=== PATIENT | male | born 1950 | race Caucasian/White ===

== ENCOUNTER 2016-11-30 11:18 | Inpatient (IN) | payer OTHER ==
[~2016-11-30] VITALS: Ht 177.8 cm; Wt 87.1 kg
--- NOTE | ~2016-11-30 | EKG ---
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
--- NOTE | ~2016-11-30 | S ---
[facility] [place] [address] [place] [address] SURGICAL PATH RPT PROCEDURE Name: MICHEAL NICHOLS Room #: 301-I DIS IN M.R.#: [id number] Admission: 11/30/16 Date of : 50 Discharge: 12/03/16 Report #: [id number] Path Case #: [id number] PATHOLOGY REPORT COLLECTION DATE: 12/01/2016 RECEIVED DATE: 12/04/2016 SUBMITTING PHYS: Dr. Romelia Blank OTHER PHYS: Dr. Fili Ying SPECIMEN(S) RECEIVED: A.Bx of small bowel B.Random bx of gastritis * * * * * * * * * * * * FINAL DIAGNOSIS: A. Small bowel, endoscopic biopsy: - Mild active peptic duodenitis. - Negative for dysplasia or malignancy. B. Gastric mucosa, random, endoscopic biopsy: - Moderate reactive gastropathy with focal acute gastritis. - Negative for intestinal metaplasia or atrophy. - Negative for Helicobacter pylori. COMMENT: Helicobacter pylori immunohistochemical stain performed on block B1 negative. (IUV:csd; d/t: 12/05/2016) PATHOLOGIST: Sisi Brown M.D. REPORT ELECTRONICALLY SIGNED BY: Sisi Brown M.D. DATE/TIME: 12/05/2016 16:25 * * * * * * * * * * * * GROSS PATHOLOGY: A. Received in formalin labeled "Micheal Nichols and bx of small bowel," are 2 segments of santamaria soft tissue measuring 0.6 x 0.2 x 0.2 cm in aggregate dimensions and measuring 0.2 and 0.4 cm in maximum dimension. The specimen is submitted entirely in cassette A1. B. Received in formalin labeled "Micheal Nichols and random bx of gastritis," are 2 segments of santamaria soft tissue measuring 0.8 x 0.2 x 0.2 cm in aggregate dimensions and measuring 0.3 and 0.5 cm in maximum dimension. The specimen is submitted entirely in cassette B1. (TTL; 12/04/2016) [place] [address] [place] [address] SURGICAL PATH RPT PROCEDURE Name: MICHEAL NICHOLS Room #: 301-I [facility] IN M.R.#: [id number] Admission: 11/30/16 Date of : 50 Discharge: 12/03/16 Report #: [id number] Path Case #: [id number] CLINICAL HISTORY: None given INITIAL CPT CODE(S): A; 07529 B; 69686, 55054 Professional services performed by [facility] at [facility] [address] [place] [address] Technical services performed by [facility] at [address] [place] [address], [address] [address]. [facility] [address] [address] PHONE: [phone] DIRECTOR: Pj Burns M.D. * * * END OF REPORT * * *
--- NOTE | ~2016-11-30 | P ---
[facility] [place] [address] [place] [address] PROCEDURE REPORT Name: MICHEAL LAU Amina Room #: 301-I [facility] IN M.R.#: [id number] Admission: 11/30/16 Attend Phys: Stepan Felix MD Discharge: 12/03/16 Date of : 50 Report #: [id number] THIS REPORT FOR: //name// CC: Stepan Ayala DO DATE OF SERVICE: 12/01/2016 PATIENT OF: Dr. Fili Ayala and Dr. Stepan Felix. PROCEDURE #1: Flexible sigmoidoscopy, diagnostic. INDICATION FOR PROCEDURE: Evaluate hematochezia, nausea, vomiting, and dark brown emesis. The patient has a history of regular alcohol use. He did drop his hemoglobin from 10.7 down to 9.0. Informed consent for this procedure was obtained prior to the administration of any medication. The risks of the procedure, which include bleeding, perforation, infection, complications of sedation and the possibility I could miss something have been explained to the patient and he has indicated his consent by signing. Propofol was slowly titrated before and during this procedure for patient comfort. The StoredIQinon colonoscope was introduced through the anal sphincter and advanced under direct visualization to the distal transverse colon. No blood is seen in the colon. There are couple of old blood clots that I suctioned from the left colon. The distal transverse colonic mucosa appears normal. There is no blood here. Splenic flexure, normal mucosa. Descending colon, a few uncomplicated diverticula seen in the descending colon. Sigmoid colon, uncomplicated diverticulosis was noted. Rectum, normal mucosa. Retroflex view did not reveal any further abnormalities. The scope was withdrawn. The patient was taken to the recovery room for recovery purposes. Thank you very much once again for allowing me to participate in his care. PROCEDURE #2: EGD with biopsies. INDICATION FOR PROCEDURE: Nausea, vomiting, and dark brown emesis, uncertain etiology. DESCRIPTION OF PROCEDURE: Informed consent for this procedure was obtained prior to the administration of any medication. The risks of the procedure, which include bleeding, perforation, infection, complications of sedation and the possibility I could miss something have been explained to the patient and he [address] [address] PROCEDURE REPORT Name: JUDIMICHEAL Room #: 301-I [facility] IN [facility]#: [id number] Admission: 11/30/16 Attend Phys: Stepan Felix MD Discharge: 12/03/16 Date of : 50 Report #: [id number] has indicated his consent by signing. Propofol was slowly titrated before and during this procedure . The Quantasonn upper videoscope was introduced through the upper esophageal sphincter and advanced under direct visualization to the second portion of the duodenum. Findings are noted on withdrawal of the scope. The second portion of duodenum appears normal. The duodenal bulb itself is somewhat edematous, irregular and erythematous. Biopsies are obtained times 2 from the duodenal bulb for histopathology with good hemostasis was noted after those biopsies. Pylorus, normal mucosa. Antrum, normal mucosa. Body, normal mucosa. Cardia and fundus, normal mucosa. Retroflex view did not reveal any hiatal hernia. Biopsies were obtained randomly from the antrum and body of the stomach for Helicobacter pylori evaluation. Scope was withdrawn to the esophagus. Esophageal mucosa appears normal throughout its entirety. The scope was withdrawn. The patient went to the recovery area in stable condition. He tolerated the procedure well. The source of blood loss was not identified on either of the scopes it potentially may have come from a diverticulum in the left colon to explain the hematochezia. The etiology of the brown emesis that is described may have been from the duodenitis that was seen and biopsied. Recommendations are to await the biopsy results. If he has another bleeding episode, I would consider a stat CTA or GI bleeding scan. We will start him on a clear liquid tonight and advance as tolerated. We will monitor his H and H closely. Thank you very much once again for allowing me to participate in his care, Dr. Felix and Dr. Fili Ayala. <ELECTRONICALLY SIGNED> By: Romelia Blank DO 12/05/16 [id number] Romelia Blank DO /nt
[~2016-11-30 11:18] MED LIST: AMITRIPTYLINE H25 M2 PO; ASPIRIN325 PO; ATORVASTATIN CA80 MG PO; BENICAR20 MG PO; BYSTOLIC 5 MG5 M1 PO; CENTRUM SILVER1 EAC4 PO; DIOVAN160 MG PO; EFFIENT10 MG PO; FISH OIL 1,0001 EAC5 PO; LIPITOR40 MG PO; LOVAZA1000 MG PO; NOHOMEMEDICATIONS; [UNRECOGNIZED DRUG - OTHER]
[2016-11-30 11:23] VITALS: BP 114/69
[2016-11-30] MEDS ORDERED: UNISOM50 MG PO ×2 (11:48→15:13)
[2016-11-30 11:56] LABS: HEMATOCRIT 31.5 % (42.0-52.0); HEMOGLOBIN 10.7 gm/dL (14.0-18.0); MCH 32.9 pg (26.0-34.0); MCHC 33.8 % (28.0-37.0); MCV 97.1 fL (80.0-100.0); PLATELET COUNT 200 thou/uL (150-400); RBC 3.24 mil/uL (4.50-6.00); RDW 13.4 % (10.5-14.5); WBC 19.8 thou/uL (4.0-11.0)
[2016-11-30 12:04] LABS: MANUAL DIFF YES
[2016-11-30 12:09] LABS: CREATININE 1.6 mg/dL (0.6-1.3); POTASSIUM 4.2 mmol/L (3.5-5.1)
[2016-11-30 12:16] LABS: TOTAL BILIRUBIN 0.6 mg/dL (<0.1-1.0); TOTAL PROTEIN 5.8 g/dL (6.4-8.2)
[2016-11-30 12:21] LABS: ABSOLUTE NEUTROPHILS 18.6 thou/uL (1.4-8.2); PLATELET ESTIMATE NORMAL; TOTAL CELL COUNT 100
[2016-11-30 13:58] VITALS: BP 110/65
[2016-11-30] MEDS ORDERED: ASPIR-TRIN325 MG PO (15:10)
[2016-11-30] MEDS ORDERED: ATORVASTATIN CA40 MG PO (15:11)
[2016-11-30] MEDS ORDERED: DIOVAN 80 MG TA80 M1 PO (15:12)
[2016-11-30] MEDS ORDERED: BYSTOLIC 5 MG5 M1 PO (15:12)
[2016-11-30 15:20] VITALS: BP 108/56
[2016-11-30 17:35] LABS: HEMATOCRIT 26.8 % (42.0-52.0)
[2016-11-30 20:00] VITALS: BP 122/68
[2016-11-30 20:03] LABS: URINE BILIRUBIN NEGATIVE (Negative); URINE BLOOD NEGATIVE (Negative); URINE COLOR YELLOW; URINE GLUCOSE-RANDOM* NEGATIVE (Negative); URINE KETONES NEGATIVE (Negative); URINE NITRITE NEGATIVE (Negative); URINE PROTEIN (DIPSTICK) NEGATIVE (Negative); URINE UROBILINOGEN 0.2 E.U./dl (0.2-1.0)
[2016-12-01 00:21] VITALS: BP 136/86
[2016-12-01 03:15] VITALS: BP 126/72
[2016-12-01 06:17] LABS: HEMATOCRIT 22.3 % (42.0-52.0); HEMOGLOBIN 7.6 gm/dL (14.0-18.0)
[2016-12-01 08:27] VITALS: BP 116/64
[2016-12-01 09:50] LABS: CALCIUM 7.7 mg/dL (8.5-10.1); CREATININE 1.2 mg/dL (0.6-1.3)
[2016-12-01 10:49] LABS: HEMOGLOBIN 8.3 gm/dL (14.0-18.0); MCV 97.2 fL (80.0-100.0); WBC 10.6 thou/uL (4.0-11.0)
[2016-12-01 10:51] LABS: ABSOLUTE NEUTROPHILS 7.2 thou/uL (1.4-8.2); BASOPHILS 0.9 % (0.0-2.0); EOSINOPHILS 2.3 % (0.0-3.0); HEMATOCRIT 24.3 % (42.0-52.0); LYMPHOCYTES 21.6 % (24.0-44.0); MCH 33.3 pg (26.0-34.0); MCHC 34.2 % (28.0-37.0); MONOCYTES 6.8 % (1.0-8.0); PLATELET COUNT 164 thou/uL (150-400); POLYS 68.4 % (36.0-66.0); RDW 13.6 % (10.5-14.5)
[2016-12-01 11:07] LABS: MANUAL DIFF NO
[2016-12-01 16:01] VITALS: BP 106/59
[2016-12-01 16:19] LABS: HEMATOCRIT 22.6 % (42.0-52.0); HEMOGLOBIN 7.7 gm/dL (14.0-18.0)
[2016-12-01 19:55] VITALS: BP 130/71
[2016-12-02] VITALS (7 sets, daily range): BP systolic 109–151; BP diastolic 50–104
[2016-12-02 03:44] LABS: HEMATOCRIT 20.2 % (42.0-52.0); RBC 2.04 mil/uL (4.50-6.00)
[2016-12-02 03:45] LABS: MCHC 33.5 % (28.0-37.0); MCV 98.6 fL (80.0-100.0); RDW 13.7 % (10.5-14.5); WBC 7.1 thou/uL (4.0-11.0)
[2016-12-02 03:48] LABS: HEMOGLOBIN 6.7 gm/dL (14.0-18.0)
[2016-12-02 04:29] LABS: CALCIUM 7.5 mg/dL (8.5-10.1); CREATININE 1.1 mg/dL (0.6-1.3); POTASSIUM 3.4 mmol/L (3.5-5.1)
[2016-12-02 11:14] LABS: HEMATOCRIT 22.6 % (42.0-52.0); HEMOGLOBIN 7.8 gm/dL (14.0-18.0)
[2016-12-03 04:00] VITALS: BP 134/65
[2016-12-03 05:47] LABS: HEMATOCRIT 24.4 % (42.0-52.0); HEMOGLOBIN 8.2 gm/dL (14.0-18.0); MCH 32.9 pg (26.0-34.0); MCHC 33.6 % (28.0-37.0); MCV 97.9 fL (80.0-100.0); RBC 2.5 mil/uL (4.50-6.00); RDW 13.8 % (10.5-14.5); WBC 9.1 thou/uL (4.0-11.0)
[2016-12-03 07:35] VITALS: BP 145/68
[2016-12-03] MEDS ORDERED: CHILDREN'S ASPI81 M1 PO (13:16)
[2016-12-03] MEDS ORDERED: PROTONIX40 M1 PO (13:16)
[2016-12-03 14:10] VITALS: BP 145/68
== END 2016-12-03 16:48 | disposition home or self-care (01) | DRG 378 ==
LOC: ER 11:18 → 3N 13:37 → EROBS 13:37 → 3N 14:13
PROVIDERS: Family Medicine; Internal Medicine Gastroenterology; Nurse Practitioner; Nurse Practitioner Family
PROC: 30233N1 Transfusion of Nonautologous Red Blood Cells into Peripheral Vein, Percutaneous Approach (ICD-10-PCS; 2016-11-30)
PROC: 0DB68ZX Excision of Stomach, Via Natural or Artificial Opening Endoscopic, Diagnostic (ICD-10-PCS; principal; 2016-12-01)
PROC: 0DB98ZX Excision of Duodenum, Via Natural or Artificial Opening Endoscopic, Diagnostic (ICD-10-PCS; 2016-12-01)
PROC: 0DJD8ZZ Inspection of Lower Intestinal Tract, Via Natural or Artificial Opening Endoscopic (ICD-10-PCS; 2016-12-01)
DX: K92.2 Gastrointestinal hemorrhage, unspecified (principal); N17.9 Acute kidney failure, unspecified; D62 Acute posthemorrhagic anemia; K57.31 Diverticulosis of large intestine without perforation or abscess with bleeding; I10 Essential (primary) hypertension; F12.90 Cannabis use, unspecified, uncomplicated; E78.5 Hyperlipidemia, unspecified; I25.10 Atherosclerotic heart disease of native coronary artery without angina pectoris; K92.1 Melena; K76.0 Fatty (change of) liver, not elsewhere classified; K29.80 Duodenitis without bleeding; R33.9 Retention of urine, unspecified; K57.30 Diverticulosis of large intestine without perforation or abscess without bleeding; D72.829 Elevated white blood cell count, unspecified; Z88.8 Allergy status to other drugs, medicaments and biological substances; Z91.041 Radiographic dye allergy status; I25.2 Old myocardial infarction; Z90.49 Acquired absence of other specified parts of digestive tract; Z95.5 Presence of coronary angioplasty implant and graft; Z79.82 Long term (current) use of aspirin; Z79.899 Other long term (current) drug therapy; Z87.891 Personal history of nicotine dependence; Z86.19 Personal history of other infectious and parasitic diseases
CPT/HCPCS: 10094; 10096; 23012; 62110; 62900; 70005

== ENCOUNTER → 2020-04-27 | Outpatient (CLI) | payer OTHER ==
[~2020-04-27] MED LIST changes: +ASPIR-TRIN325 MG PO; +ATORVASTATIN CA40 MG PO; +CHILDREN'S ASPI81 M1 PO; +DIOVAN 80 MG TA80 M1 PO; +PROTONIX40 M1 PO; +UNISOM50 MG PO
== END ==
LOC: SJCVCIMAG 03-30 10:03
PROVIDERS: ATTEND Internal Medicine
DX: I25.10 Atherosclerotic heart disease of native coronary artery without angina pectoris (principal); I25.2 Old myocardial infarction; E78.5 Hyperlipidemia, unspecified; Z87.891 Personal history of nicotine dependence

== ENCOUNTER → 2020-10-28 | Outpatient (CLI) | payer OTHER | LOC: SJCVC 13:43 | PROVIDERS: ATTEND Internal Medicine | DX: I25.10 Atherosclerotic heart disease of native coronary artery without angina pectoris (principal); I65.23 Occlusion and stenosis of bilateral carotid arteries; I10 Essential (primary) hypertension; E78.5 Hyperlipidemia, unspecified; I42.9 Cardiomyopathy, unspecified; F17.201 Nicotine dependence, unspecified, in remission; I73.9 Peripheral vascular disease, unspecified; Z79.82 Long term (current) use of aspirin; Z79.899 Other long term (current) drug therapy ==

== ENCOUNTER → 2020-11-04 | Outpatient (CLI) | payer OTHER | LOC: CAT 10:37 | PROVIDERS: ATTEND Internal Medicine | DX: J43.9 Emphysema, unspecified (principal); J84.10 Pulmonary fibrosis, unspecified; I25.10 Atherosclerotic heart disease of native coronary artery without angina pectoris; Z87.891 Personal history of nicotine dependence ==

== ENCOUNTER → 2021-04-28 | Outpatient (CLI) | payer OTHER | LOC: SJCVC 14:14 | PROVIDERS: ATTEND Internal Medicine | DX: R94.31 Abnormal electrocardiogram [ECG] [EKG] (principal); I25.10 Atherosclerotic heart disease of native coronary artery without angina pectoris; I10 Essential (primary) hypertension; I65.23 Occlusion and stenosis of bilateral carotid arteries; E78.5 Hyperlipidemia, unspecified; F17.201 Nicotine dependence, unspecified, in remission; F41.9 Anxiety disorder, unspecified; I65.29 Occlusion and stenosis of unspecified carotid artery; L03.90 Cellulitis, unspecified; K57.92 Diverticulitis of intestine, part unspecified, without perforation or abscess without bleeding; M19.90 Unspecified osteoarthritis, unspecified site; M54.40 Lumbago with sciatica, unspecified side; I25.5 Ischemic cardiomyopathy; I73.9 Peripheral vascular disease, unspecified; Z79.82 Long term (current) use of aspirin; Z79.899 Other long term (current) drug therapy; Z88.8 Allergy status to other drugs, medicaments and biological substances; Z88.5 Allergy status to narcotic agent ==

== ENCOUNTER → 2021-10-28 | Outpatient (CLI) | payer OTHER | LOC: SJCVCIMAG 06:34 | PROVIDERS: ATTEND Internal Medicine | DX: I65.23 Occlusion and stenosis of bilateral carotid arteries (principal); I25.10 Atherosclerotic heart disease of native coronary artery without angina pectoris; I10 Essential (primary) hypertension; E78.5 Hyperlipidemia, unspecified; F17.201 Nicotine dependence, unspecified, in remission; I95.9 Hypotension, unspecified; R53.83 Other fatigue; R63.4 Abnormal weight loss; F10.20 Alcohol dependence, uncomplicated; M19.90 Unspecified osteoarthritis, unspecified site; Z79.82 Long term (current) use of aspirin; Z79.899 Other long term (current) drug therapy; Z90.49 Acquired absence of other specified parts of digestive tract; Z98.890 Other specified postprocedural states; Z88.8 Allergy status to other drugs, medicaments and biological substances ==

== ENCOUNTER → 2021-11-14 | Outpatient (CLI) | payer OTHER | LOC: CAT 09:55 | PROVIDERS: ATTEND Internal Medicine | DX: Z12.2 Encounter for screening for malignant neoplasm of respiratory organs (principal); Z87.891 Personal history of nicotine dependence ==